=== PATIENT | female | born 1950 | race Caucasian/White ===

== ENCOUNTER 2016-06-07 03:07 | Emergency (ER) | payer OTHER ==
[2016-06-07 03:13] VITALS: TEMP 97.6; BMI 23.6
--- NOTE | 2016-06-07 03:31 | PDOC ---
History of Present Illness - General Chief Complaint: Nausea/Vomiting Stated Complaint: NAUSEA/VOMITING Time Seen by Provider: 06/07/16 03:24 History Source: Patient Exam Limitations: No Limitations - History of Present Illness Initial Comments: 06/07/16 03:27 This is a 66-year-old female who comes in with her family for evaluation of nausea we will diarrhea. Patient also is currently treated for sinusitis with doxycycline. Patient is noted to also have a cough. Patient said symptoms began approximately 4 hours ago and had been constant and multiple times. Patient said there is some mild epigastric pain associated with vomiting otherwise denies any pain. No one else in the house has had similar symptoms as per patient. Patient has a history significant for hypertension, high cholesterol and diabetes [id number]. PAST MEDICAL HISTORY: As per history of present illness PAST SURGICAL HISTORY: no significant history FAMILY HISTORY: no pertinant history SOCIAL HISTORY: Pt lives with family and is employed. MEDICATIONS: reviewed ALLERGIES: As per nursing notes Review of Systems General: No fevers or chills, no weakness, no weight loss HEENT: No change in vision. No sore throat,. No ear pain CardioVascular: No chest pain or shortness of breath Respiratory:No cough, or wheezing. Gastrointestinal: + nausea, + vomitting, + diarrhea no constipation, No rectal bleeding Genitourinary: No dysuria, hematuria, or frequency Musculoskeletal: No joint or muscle pain or swelling Neurologic: No headache, vertigo, dizziness or loss of consciousness Psychiatric: nor depression Skin: No rashes or easy bruising Endocrine: no increased thirst or abnormal weight change Allergic: no skin or latex allergy All other systems reviewed and normal Exam: General: Well-nourished well-developed individual, no acute distress HEENT: Throat: Normal, tonsils normal, no erythema or exudate Neck: Supple, no meningeal signs, no lymphadenopathy Eyes::Pupils equal reactive and round, extraocular motion intact Chest: Nontender to palpation Cardiac: S1-S2 normal, regular rate and rhythm, no murmurs rubs or gallops Respiratory: Lungs clear to auscultation bilateral Abdomen: Soft, nondistended, increased bowel sounds, slightly tender to palpation epigastric area Extremities: Warm, dry, no cyanosis, clubbing, or edema Skin: No rashes Neuro: Alert and oriented x3, nonfocal exam, grossly intact, normal gait Psych: Normal mood and affect 07;00 Case discussed in detail with oncoming Emergency Physician including history, physical exam and ancillary studies. Oncoming Emergency Physician has assumed care for the patient and will complete the evaluation and treatment. Patient is aware of the plan. Pt is clinically unchanged and stable. CT scan of abdomen is still pending Past History - Past Medical History Allergies/Adverse Reactions: Allergies Allergy/AdvReac Type Severity Reaction Status Date / Time Penicillins Allergy Verified 06/07/16 08:19 Home Medications: Ambulatory Orders Amlodipine Besylate [Norvasc] 10 mg PO DAILY 03/09/12 Fenofibrate 160 mg PO DAILY 03/09/12 Losartan/Hydrochlorothiazide [Losartan-Hctz 50-12.5 mg Tab] 50 mg PO DAILY 03/09 Omeprazole [Prilosec (RX)] 40 mg PO DAILY 03/09/12 Metformin HCl [Glucophage -] 500 mg PO DAILY 05/09/14 Ondansetron HCl [Zofran] 4 mg PO TID #14 tablet 05/09/14 Simvastatin [Zocor -] 40 mg PO HS 05/09/14 Levofloxacin [Levaquin] 500 mg PO DAILY 06/07/16 Ondansetron [Zofran Odt -] 4 mg SL TID PRN #14 od.tablet 06/07/16 Diabetes: Yes ("BORDERLINE") HTN: Yes Hypercholesterolemia: Yes - Surgical History Cholecystectomy: Yes - Immunization History Immunization Up to Date: Yes - Psycho/Social/Smoking Cessation Hx Anxiety: No Suicidal Ideation: No Smoking Status: No Smoking History: Never smoked Number of Cigarettes Smoked Daily: 0 Hx Alcohol Use: No Substance Use Type: None *Physical Exam - Vital Signs Last Vital Signs Temp Pulse Resp BP Pulse Ox 97.6 F 71 16 108/77 100 06/07/16 03:11 06/07/16 03:11 06/07/16 03:11 06/07/16 03:11 06/07/16 03:11 ED Treatment Course - LABORATORY CBC & Chemistry Diagram: 06/07/16 03:31 06/07/16 03:30 *DC/Admit/Observation/Transfer Diagnosis at time of Disposition: Dehydration Nausea & vomiting Qualifiers: Vomiting type: unspecified Vomiting Intractability: non-intractable Qualified Code(s): R11.2 - Nausea with vomiting, unspecified Diarrhea Qualifiers: Diarrhea type: unspecified type Qualified Code(s): R19.7 - Diarrhea, unspecified - Discharge Dispostion Disposition: HOME Condition at time of disposition: Stable Admit: No - Prescriptions Prescriptions: Ondansetron [Zofran Odt -] 4 mg SL TID PRN #14 od.tablet PRN Reason: Nausea - Referrals Referrals: Tiara Ordoñez MD [Primary Care Provider] - - Patient Instructions Printed Discharge Instructions: DI for Vomiting -- Adult, DI for Diarrhea and Traveler's Diarrhea -- Adult Additional Instructions: Clear liquids only for the next 6 hours.. After that if you have had no further vomiting you may have bananas, rice, applesauce, or toast. If no further vomiting for another 8 hours you may have regular food. If you vomit again then nothing to eat or drink for 2 hours. then start back with the clear liquids. Return to the emergency department immediately with ANY new, persistent or worsening symptoms. You MUST call and follow up with your doctor tomorrow if not better. Please make sure your doctor reviews the results of your emergency evaluation.
[2016-06-07] MEDS ORDERED: ONDANSETRON 4 MG/2 ML VIAL IVPB ONE (03:32)
[2016-06-07] MEDS ORDERED: SODIUM CHLORIDE 1,000 ML IV ONE ×2 (03:32)
[2016-06-07] MEDS ORDERED: ONDANSETRON 4 MG/2 ML VIAL ONE ×2 (03:33→03:36)
[2016-06-07 04:11] LABS: BASOPHIL 0.5 % (0-2.0); EOSINOPHIL 0.5 % (0-4.5); MCH 27.9 pg (25.7-33.7); MCHC 33.2 g/dl (32.0-36.0); MEAN CELL VOLUME 84.2 fl (80-96); MEAN PLT VOLUME 11.6 fl (7.5-11.1); NEUTROPHILS 56.7 % (42.8-82.8); PLATELET COUNT 304 K/MM3 (134-434); RDW 12.8 % (11.6-15.6); WHITE BLOOD COUNT 5.9 K/mm3 (4.0-10.0)
[2016-06-07 04:34] LABS: ALBUMIN 3.9 g/dl (3.4-5.0); ALK PHOS 66 U/L (45-117); ANION GAP 13 (8-16); BILIRUBIN,TOTAL 0.6 mg/dL (0.2-1.0); CALCIUM 8.6 mg/dL (8.5-10.1); CO2 25 mmol/L (21-32); CREATININE 0.7 mg/dL (0.55-1.02); GLUCOSE,RANDOM 138 mg/dL (74-106); TOT PROT 7.6 g/dl (6.4-8.2)
[2016-06-07 04:35] LABS: SGOT/AST 657 U/L (15-37); SGPT/ALT 876 U/L (12-78)
[2016-06-07 05:07] LABS: PLATELET COMMENT2 NO CLOTTING DETECTED; PLATELET COMMENT3 FEW LARGE PLTS; PLATELET ESTIMATE ADEQUATE (NORMAL)
[2016-06-07] MEDS ORDERED: LOPERAMIDE HCL 2 MG CAPSULE PO ONE (05:50)
--- NOTE | 2016-06-07 07:29 | PDOC ---
*Physical Exam - Vital Signs Last Vital Signs Temp Pulse Resp BP Pulse Ox 97.6 F 71 16 108/77 100 06/07/16 03:11 06/07/16 03:11 06/07/16 03:11 06/07/16 03:11 06/07/16 03:11 Heart Score/ECG Review - ECG Impressions Comment:: EKG read 07:57- NSR 68 bpm, no acute ST/T changes ED Treatment Course - LABORATORY CBC & Chemistry Diagram: 06/07/16 03:31 06/07/16 03:30 - ADDITIONAL ORDERS Additional order review: Laboratory Results 06/07/16 03:30 Sodium 133 L Potassium 3.3 L Chloride 95 L Carbon Dioxide 25 Anion Gap 13 BUN 11 Creatinine 0.7 Creat Clearance w eGFR > 60 Random Glucose 138 H Calcium 8.6 Total Bilirubin 0.6 AST 657 H ALT 876 H Alkaline Phosphatase 66 Total Protein 7.6 Albumin 3.9 Lipase 158 06/07/16 03:31 RBC 4.23 MCV 84.2 MCHC 33.2 RDW 12.8 MPV 11.6 H Neutrophils % 56.7 Lymphocytes % 34.6 Monocytes % 7.7 Eosinophils % 0.5 Basophils % 0.5 - Medications Given in the ED: ED Medications Discontinued Medications Generic Name Dose Route Start Last Admin Trade Name Freq PRN Reason Stop Dose Admin Sodium Chloride 1,000 mls @ 1,000 mls/hr 06/07/16 03:32 06/07/16 04:34 Normal Saline - IV 06/07/16 04:31 1,000 mls/hr .Q1H ONE Administration Sodium Chloride 1,000 mls @ 1,000 mls/hr 06/07/16 03:32 06/07/16 03:35 Normal Saline - IV 06/07/16 04:31 1,000 mls/hr .Q1H ONE Administration Ondansetron HCl 8 mg 06/07/16 03:32 06/07/16 03:35 Zofran Injection IVPB 06/07/16 03:33 8 mg ONCE ONE Administration Medical Decision Making - Medical Decision Making 06/07/16 07:32 Pt received at 7am signout from Dr. Jaffe. Presents with N/V/D x1 day, found to have elevated LFTs. Awaiting CT a/p for further evaluation. 06/07/16 09:26 Pt reassessed. Abd soft and nontender. Prelim read on CT is negative for any acute pathology. Pt requesting PO challenge. 06/07/16 09:46 Tolerated PO challenge. Stable for DC. Counseled her to f/u with her PMD for LFTs, return to the ED immediately if symptoms return, persist or worsen. *DC/Admit/Observation/Transfer Diagnosis at time of Disposition: Dehydration Nausea & vomiting Qualifiers: Vomiting type: unspecified Vomiting Intractability: non-intractable Qualified Code(s): R11.2 - Nausea with vomiting, unspecified Diarrhea Qualifiers: Diarrhea type: unspecified type Qualified Code(s): R19.7 - Diarrhea, unspecified - Discharge Dispostion Disposition: HOME Condition at time of disposition: Stable Admit: No - Prescriptions Prescriptions: Ondansetron [Zofran Odt -] 4 mg SL TID PRN #14 od.tablet PRN Reason: Nausea - Referrals Referrals: Tiara Ordoñez MD [Primary Care Provider] - - Patient Instructions Printed Discharge Instructions: DI for Diarrhea and Traveler's Diarrhea -- Adult, DI for Vomiting -- Adult Additional Instructions: Clear liquids only for the next 6 hours.. After that if you have had no further vomiting you may have bananas, rice, applesauce, or toast. If no further vomiting for another 8 hours you may have regular food. If you vomit again then nothing to eat or drink for 2 hours. then start back with the clear liquids. Return to the emergency department immediately with ANY new, persistent or worsening symptoms. You MUST call and follow up with your doctor tomorrow if not better. Please make sure your doctor reviews the results of your emergency evaluation. - Post Discharge Activity
[2016-06-07 10:11] VITALS: BP 116/74; PULSE 74
--- NOTE | 2016-06-07 11:22 | EKG ---
Test Reason : Blood Pressure : / mmHG Vent. Rate : 068 BPM Atrial Rate : 068 BPM P-R Int : 162 ms QRS Dur : 080 ms QT Int : 454 ms P-R-T Axes : 038 017 040 degrees QTc Int : 482 ms POOR DATA QUALITY, INTERPRETATION MAY BE ADVERSELY AFFECTED NORMAL SINUS RHYTHM POSSIBLE ANTERIOR INFARCT , AGE UNDETERMINED NO PREVIOUS ECGS AVAILABLE Confirmed by MD DAWOOD, ARTHUR ([id number]) on 06/07/2016 11:21:57 AM Referred By: MARY ANN JIMENEZ Confirmed By:ARTHUR SEAY MD
[2016-06-10 11:55] LABS: HEP B SURFACE AB NON REACTIVE
== END 2016-06-07 10:11 | disposition home or self-care (01) ==
LOC: FER 03:07
PROC: 3E033GC Introduction of Other Therapeutic Substance into Peripheral Vein, Percutaneous Approach (ICD-10-PCS; principal; 2016-06-07)
PROC: 3E0337Z Introduction of Electrolytic and Water Balance Substance into Peripheral Vein, Percutaneous Approach (ICD-10-PCS; 2016-06-07)
DX: E86.0 Dehydration (principal); R11.2 Nausea with vomiting, unspecified; R19.7 Diarrhea, unspecified
CPT/HCPCS: 36415; 74177-TC; 80053; 83690; 85025; 86704; 86706; 86708; 87340; 93005; 96361; 96374; 99283-25